=== PATIENT | female | born 1955 | race Caucasian/White ===

== ENCOUNTER → 2018-12-22 | Outpatient (CLI) | payer BC ==
--- NOTE | 2018-12-22 16:12 | CT ---
EXAMINATION TYPE: CT brain wo con DATE OF EXAM: 12/22/2018 COMPARISON: None HISTORY: Memory loss. Dizziness. Extensive falling. CT DLP: 1171 mGycm Automated exposure control for dose reduction was used. FINDINGS: No acute intracranial hemorrhage. Extra-axial spaces are clear. A few scattered areas of low attenuat ion in the periventricular and subcortical white matter likely on the basis of chronic microvascular ischemic changes. No hydrocephalus. Small area of low attenuation along the body of the right lateral ventricle may related to small lacunar infarct. Skull base is intact. Visualized paranasal sinuses a nd mastoid air cells are clear. Orbits are symmetric. Basal cisterns are preserved. IMPRESSION: NO ACUTE INTRACRANIAL HEMORRHAGE. NO MASS EFFECT OR MIDLINE SHIFT. LOW-ATTENUATION AREAS WITHIN THE PERIVENTRICULAR AND SUBCORTICAL WHITE MATTER LIKELY ON BASIS OF SVP CHIEF MARKETING OFFICER EZRA MICROVASCULAR ISCHEMIC CHANGES. SMALL HYPOATTENUATING AREA IN THE RIGHT CENTRUM SEMIOVALE AND COR HODAN RADIATA MAY BE RELATED TO CHRONIC LACUNAR INFARCT. IF SYMPTOMS PERSIST, CONSIDER MRI OF THE BRAIN WITHOUT CONTRAST.
== END | disposition home or self-care (01) ==
LOC: RADCTMAIN 15:33
PROVIDERS: ATTEND Psychiatry & Neurology Neurology
DX: R90.82 White matter disease, unspecified (principal)
CPT/HCPCS: 70450